=== PATIENT | male | born 1975 | race Caucasian/White ===

== ENCOUNTER 2017-06-18 04:36 | Emergency (ER) | payer OTHER ==
[~2017-06-18] VITALS: Ht 175.3 cm; Wt 71.6 kg
[2017-06-18 07:11] LABS: HEMATOCRIT 49.2 % (39.2-51.8); HEMOGLOBIN 16.5 g/dL (13.7-18.0); WHITE BLOOD COUNT 8.1 x10^3/uL (3.4-10)
[2017-06-18 07:22] LABS: BLOOD UREA NITROGEN 21 mg/dL (7-18)
[2017-06-18 08:03] VITALS: BP 110/68
== END 2017-06-18 08:30 | disposition home or self-care (01) ==
LOC: ED 07:02
DX: I10 Essential (primary) hypertension (principal); L70.0 Acne vulgaris; Z87.891 Personal history of nicotine dependence
CPT/HCPCS: 36415; 80048; 82040; 85025; 93005; 99285